=== PATIENT | male | born 1935 | race Two or more races ===

== ENCOUNTER 2017-08-05 19:57 | Inpatient (IN) | payer MEDICARE, BC ==
[~2017-08-05] VITALS: Ht 157.5 cm; Wt 83.5 kg
[2017-08-05 21:02] LABS: BASOPHILS # (AUTO) 0.1 K/uL (0.0-8.0); BASOPHILS % (AUTO) 0.7 % (0.0-2.0); CARBON DIOXIDE 33 mmol/L (21-32); CHLORIDE 95 mmol/L (98-107); CREATININE 2.9 mg/dL (0.6-1.3); EOSINOPHILS # (AUTO) 0.8 K/uL (0.0-0.7); EOSINOPHILS % (AUTO) 5.9 % (0.0-7.0); GLUCOSE 116 mg/dL (74-106); HEMATOCRIT 21.1 % (36.7-47.1); LYMPHOCYTES # (AUTO) 0.8 K/uL (20.0-40.0); LYMPHOCYTES % (AUTO) 5.5 % (20.5-51.5); MEAN CORPUSCULAR HEMOGLOBIN 28.9 uug (23.8-33.4); MEAN CORPUSCULAR HGB CONC 32 g/dL (32.5-36.3); MEAN CORPUSCULAR VOLUME 90.3 fL (73.0-96.2); MONOCYTES # (AUTO) 2.2 K/uL (2.0-10.0); MONOCYTES % (AUTO) 16.1 % (0.0-11.0); NEUTROPHILS # (AUTO) 9.9 K/uL (1.8-8.9); NEUTROPHILS % (AUTO) 71.8 % (38.5-71.5); PLATELET COUNT (AUTO) 149 K/uL (152-348); POTASSIUM 3.5 mmol/L (3.5-5.1); UREA NITROGEN, BLOOD 54 mg/dL (7-18)
[2017-08-05 21:05] LABS: RED BLOOD CELL COUNT(AUTO) 2.34 MIL/uL (4.06-5.63)
[2017-08-05 21:07] LABS: HEMOGLOBIN 6.8 g/dL (12.5-16.3); WHITE BLOOD COUNT (AUTO) 13.8 K/uL (3.6-10.2)
[2017-08-05 21:15] LABS: ALANINE AMINOTRANSFERASE 22 U/L (16-63); ALKALINE PHOSPHATASE 96 U/L (50-136); ASPARTATE AMINOTRANSFERASE 22 U/L (15-37); BILIRUBIN,DIRECT 0.4 mg/dL (0.0-0.2); BILIRUBIN,TOTAL 0.8 mg/dL (0.2-1.0); TOTAL PROTEIN, SERUM 7.2 g/dL (6.4-8.2)
[2017-08-05 21:38] LABS: BAND % (MANUAL) 15 % (0-10); EOSINOPHILS % (MANUAL) 7 % (0-8); LYMPHOCYTES % (MANUAL) 6 % (20-40); MONOCYTES % (MANUAL) 16 % (2-10); NEUTROPHILS % (MANUAL) 53 % (42-75)
[2017-08-05 21:39] LABS: METAMYELOCYTES % 2 % (0-1); MYELOCYTES % 1 % (0-0)
[2017-08-05] MEDS ORDERED: MIDO5TAB GT (21:39)
[2017-08-05] MEDS ORDERED: BICA50TA2 GT (21:39)
[2017-08-05] MEDS ORDERED: POLY17PO4 GT (21:39)
[2017-08-05] MEDS ORDERED: ONDA4TAB10 GT (21:39)
[2017-08-05] MEDS ORDERED: VIT1TABL46 GT (21:39)
[2017-08-05] MEDS ORDERED: SEVE800T8 GT (21:39)
[2017-08-05] MEDS ORDERED: ATOR40TA GT (21:39)
[2017-08-05] MEDS ORDERED: TAMS0.4C34 GT (21:39)
[2017-08-05] MEDS ORDERED: HYDROCORTISONE CREAM TOP (21:39)
[2017-08-05] MEDS ORDERED: ACET160S GT (21:39)
[2017-08-05] MEDS ORDERED: GLUC1KIT IJ (21:39)
[2017-08-05] MEDS ORDERED: FAMO20TA8 GT (21:39)
[2017-08-05] MEDS ORDERED: IPRA3AMP IH (21:39)
[2017-08-05] MEDS ORDERED: ASCO500C18 GT (21:39)
[2017-08-05] MEDS ORDERED: BISA10SU8 RC (21:39)
[2017-08-05] MEDS ORDERED: SENN-167 GT (21:39)
[2017-08-05] MEDS ORDERED: PROT946L GT (21:39)
[2017-08-05] MEDS ORDERED: TRAM50TA2 GT (21:39)
[2017-08-05] MEDS ORDERED: DOCU100C36 GT (21:39)
[2017-08-05] MEDS ORDERED: LEVOFLOXACIN 500 MG/D5W 100ML PIGGYBACK IV ONE (22:00)
[2017-08-05] MEDS ORDERED: LEVOFLOXACIN 500 MG/D5W 100 ML ONE (22:17)
[2017-08-05] MEDS ORDERED: PANTOPRAZOLE SODIUM 40 MG VIAL IV ONE (22:45)
[2017-08-05] MEDS ORDERED: PANTOPRAZOLE SODIUM 40 MG VIAL ONE (22:46)
[2017-08-05 23:23] LABS: *OCCULT BLOOD STOOL POSITIVE (NEGATIVE)
[2017-08-06] VITALS (14 sets, daily range): BP systolic 97–119; BP diastolic 51–76
[2017-08-06] MEDS ORDERED: DEXTROSE 50% 50 ML DISP.SYRIN IV PRN ×2 (01:45)
[2017-08-06] MEDS ORDERED: INSULIN REGULAR, HUMAN 300 UNIT/3 ML VIAL SQ PRN (01:45)
[2017-08-06] MEDS: BLOOD SUGAR DIAGNOSTIC 1 EACH STRIP VI SCH ×3 (06:10→17:45)
[2017-08-06] MEDS ORDERED: BLOOD SUGAR DIAGNOSTIC 1 EACH STRIP VI SCH (07:30)
[2017-08-06] MEDS ORDERED: NOVASOURCE RENAL 1000 ML LIQUID GT SCH (08:15)
[2017-08-06 09:18] LABS: BASOPHILS # (AUTO) 0.1 K/uL (0.0-8.0); BASOPHILS % (AUTO) 0.9 % (0.0-2.0); EOSINOPHILS # (AUTO) 0.5 K/uL (0.0-0.7); EOSINOPHILS % (AUTO) 3.4 % (0.0-7.0); HEMATOCRIT 27.6 % (36.7-47.1); HEMOGLOBIN 9.1 g/dL (12.5-16.3); LYMPHOCYTES # (AUTO) 0.6 K/uL (20.0-40.0); LYMPHOCYTES % (AUTO) 4.3 % (20.5-51.5); MEAN CORPUSCULAR HEMOGLOBIN 29.1 uug (23.8-33.4); MEAN CORPUSCULAR HGB CONC 33 g/dL (32.5-36.3); MEAN CORPUSCULAR VOLUME 88.1 fL (73.0-96.2); MONOCYTES # (AUTO) 2.1 K/uL (2.0-10.0); MONOCYTES % (AUTO) 14.1 % (0.0-11.0); NEUTROPHILS # (AUTO) 11.5 K/uL (1.8-8.9); NEUTROPHILS % (AUTO) 77.3 % (38.5-71.5); PLATELET COUNT (AUTO) 137 K/uL (152-348); RED BLOOD CELL COUNT(AUTO) 3.14 MIL/uL (4.06-5.63); WHITE BLOOD COUNT (AUTO) 14.8 K/uL (3.6-10.2)
[2017-08-06 09:29] LABS: MAGNESIUM 2.3 mg/dL (1.8-2.4); PHOSPHOROUS 3.7 mg/dL (2.5-4.9)
[2017-08-06] MEDS ORDERED: MIRALAX 17 GM POWD.PACK GT PRN (09:30)
[2017-08-06] MEDS ORDERED: ONDANSETRON HCL 4 MG TABLET GT PRN (09:30)
[2017-08-06] MEDS ORDERED: DOCUSATE SODIUM 100 MG/10 ML LIQUID UDC GT PRN (09:30)
[2017-08-06] MEDS ORDERED: BISACODYL 10 MG SUPP.RECT RC PRN (09:30)
[2017-08-06] MEDS ORDERED: GLUCAGON,HUMAN RECOMBINANT 1 MG VIAL IVP PRN (09:30)
[2017-08-06] MEDS ORDERED: TRAMADOL HCL 50 MG TABLET GT PRN (09:30)
[2017-08-06] MEDS ORDERED: SENNOSIDES 1 TABLET GT PRN (09:30)
[2017-08-06] MEDS: FOLIC ACID/VITAMIN B COMP W-C TABLET GT SCH (10:02)
[2017-08-06] MEDS: FAMOTIDINE 20 MG TABLET GT SCH (10:02)
[2017-08-06] MEDS: PROTEIN SUPPLEMENT (PROSTAT) 30 ML LIQUID GT SCH ×3 (10:02→16:45)
[2017-08-06] MEDS: ASCORBIC ACID 250 MG TABLET GT SCH (10:02)
[2017-08-06] MEDS: TAMSULOSIN HCL 0.4 MG CAP.SR.24H XX SCH (10:02)
[2017-08-06] MEDS: MIDODRINE HCL 5 MG TABLET GT SCH ×3 (10:05→20:32)
[2017-08-06 11:56] LABS: BAND % (MANUAL) 11 % (0-10); EOSINOPHILS % (MANUAL) 4 % (0-8); LYMPHOCYTES % (MANUAL) 5 % (20-40); METAMYELOCYTES % 3 % (0-1); MONOCYTES % (MANUAL) 12 % (2-10); MYELOCYTES % 3 % (0-0); NEUTROPHILS % (MANUAL) 62 % (42-75)
[2017-08-06] MEDS: SEVELAMER CARBONATE 800 MG POWD.PACK GT SCH ×3 (12:22→20:38)
[2017-08-06] MEDS: BICALUTAMIDE 50 MG TABLET GT SCH (12:24)
[2017-08-06] MEDS: INSULIN REGULAR, HUMAN 300 UNIT/3 ML VIAL SQ PRN ×2 (12:25→17:46)
[2017-08-06] MEDS ORDERED: ALBUMIN HUMAN 25% 100 ML IV ONE (12:30)
[2017-08-06] MEDS: ATORVASTATIN 40 MG TABLET GT SCH (20:32)
[2017-08-07 00:06] VITALS: BP 106/61
[2017-08-07] MEDS: BLOOD SUGAR DIAGNOSTIC 1 EACH STRIP VI SCH ×5 (00:28→23:58)
[2017-08-07] MEDS: IPRATROPIUM BROMIDE 0.5 MG/2.5 ML NEBU NEB PRN (01:06)
[2017-08-07] MEDS: ALBUTEROL SULFATE 2.5 MG/ 0.5 ML NEBU NEB PRN (01:07)
[2017-08-07 04:05] VITALS: BP 106/60
[2017-08-07] MEDS: SEVELAMER CARBONATE 800 MG POWD.PACK GT SCH ×3 (06:35→22:18)
[2017-08-07] MEDS: MIDODRINE HCL 5 MG TABLET GT SCH ×3 (06:36→22:18)
[2017-08-07] MEDS: INSULIN REGULAR, HUMAN 300 UNIT/3 ML VIAL SQ PRN ×2 (06:42→14:28)
[2017-08-07 06:43] LABS: BASOPHILS # (AUTO) 0.1 K/uL (0.0-8.0); BASOPHILS % (AUTO) 0.6 % (0.0-2.0); EOSINOPHILS # (AUTO) 0.8 K/uL (0.0-0.7); LYMPHOCYTES # (AUTO) 0.2 K/uL (20.0-40.0); LYMPHOCYTES % (AUTO) 1.4 % (20.5-51.5); MEAN CORPUSCULAR HEMOGLOBIN 29.2 uug (23.8-33.4); MEAN CORPUSCULAR HGB CONC 33 g/dL (32.5-36.3); MEAN CORPUSCULAR VOLUME 89.5 fL (73.0-96.2); MONOCYTES # (AUTO) 1.1 K/uL (2.0-10.0); MONOCYTES % (AUTO) 8.2 % (0.0-11.0); NEUTROPHILS # (AUTO) 11.7 K/uL (1.8-8.9); NEUTROPHILS % (AUTO) 83.8 % (38.5-71.5)
[2017-08-07 06:55] LABS: HEMOGLOBIN 9.8 g/dL (12.5-16.3); RED BLOOD CELL COUNT(AUTO) 3.36 MIL/uL (4.06-5.63)
[2017-08-07 06:56] LABS: IRON, SERUM 32 ug/dL (50-175); PLATELET COUNT (AUTO) 148 K/uL (152-348)
[2017-08-07 07:36] LABS: ALANINE AMINOTRANSFERASE 19 U/L (16-63); ALKALINE PHOSPHATASE 99 U/L (50-136); ASPARTATE AMINOTRANSFERASE 24 U/L (15-37); BILIRUBIN,TOTAL 1.2 mg/dL (0.2-1.0); CARBON DIOXIDE 31 mmol/L (21-32); CHLORIDE 97 mmol/L (98-107); CREATININE 3.1 mg/dL (0.6-1.3); FERRITIN 2066 ng/mL (26-388); GLUCOSE 162 mg/dL (74-106); MAGNESIUM 2.2 mg/dL (1.8-2.4); PHOSPHOROUS 2.6 mg/dL (2.5-4.9); POTASSIUM 3.9 mmol/L (3.5-5.1); TOTAL PROTEIN, SERUM 7.7 g/dL (6.4-8.2); UREA NITROGEN, BLOOD 56 mg/dL (7-18)
[2017-08-07 08:31] LABS: ABG BASE EXCESS 3.3 mmol/L; ABG HCO3 30.6 mmol/L; ABG PCO2 60.4 mmHg (35.0-45.0); ABG PH 7.322 (7.350-7.450); ABG PO2 73.6 mmHg (75.0-100.0); ABG SITE LEFT RADIAL; ABG TOTAL HEMOGLOBIN 10.9 G/dL (13.5-18.0); MetHb 0.3 % (0.0-1.5); O2Hb 92.2 % (94.0-97.0); VENT MODE VENT - SIMV; VT, ABG 500 mL
[2017-08-07] MEDS: FAMOTIDINE 20 MG TABLET GT SCH (09:45)
[2017-08-07] MEDS: FOLIC ACID/VITAMIN B COMP W-C TABLET GT SCH (09:45)
[2017-08-07] MEDS: BICALUTAMIDE 50 MG TABLET GT SCH (09:45)
[2017-08-07] MEDS: ASCORBIC ACID 250 MG TABLET GT SCH (09:46)
[2017-08-07] MEDS: PROTEIN SUPPLEMENT (PROSTAT) 30 ML LIQUID GT SCH ×3 (09:46→17:00)
[2017-08-07] MEDS: TAMSULOSIN HCL 0.4 MG CAP.SR.24H XX SCH (09:46)
[2017-08-07 11:52] VITALS: BP 104/56
[2017-08-07 15:57] VITALS: BP 104/61
[2017-08-07 20:28] VITALS: BP 103/52
[2017-08-07] MEDS: ATORVASTATIN 40 MG TABLET GT SCH (20:48)
[2017-08-07] MEDS ORDERED: LEVOFLOXACIN 250MG /D5W 50 ML IV ONE (21:52)
[2017-08-07] MEDS ORDERED: LEVOFLOXACIN 250MG /D5W 250 MG in PREMIXED 1 EACH IV SCH (22:00)
[2017-08-07] MEDS: ACETAMINOPHEN 650 MG/20.3 ML LIQUID UDC GT PRN (22:22)
[2017-08-08] VITALS (7 sets, daily range): BP systolic 84–99; BP diastolic 43–57
[2017-08-08] MEDS: MIDODRINE HCL 5 MG TABLET GT SCH ×3 (05:24→20:38)
[2017-08-08] MEDS: SEVELAMER CARBONATE 800 MG POWD.PACK GT SCH ×3 (05:24→20:30)
[2017-08-08] MEDS: BLOOD SUGAR DIAGNOSTIC 1 EACH STRIP VI SCH ×3 (05:33→17:20)
[2017-08-08] MEDS: INSULIN REGULAR, HUMAN 300 UNIT/3 ML VIAL SQ PRN ×2 (05:36→17:22)
[2017-08-08] MEDS ORDERED: ALBUMIN HUMAN 25% 100 ML IV PRN (08:00)
[2017-08-08] MEDS: TAMSULOSIN HCL 0.4 MG CAP.SR.24H XX SCH (09:40)
[2017-08-08] MEDS: ASCORBIC ACID 250 MG TABLET GT SCH (09:40)
[2017-08-08] MEDS: FOLIC ACID/VITAMIN B COMP W-C TABLET GT SCH (09:40)
[2017-08-08] MEDS: BICALUTAMIDE 50 MG TABLET GT SCH (09:43)
[2017-08-08] MEDS: PROTEIN SUPPLEMENT (PROSTAT) 30 ML LIQUID GT SCH ×3 (09:47→17:20)
[2017-08-08] MEDS: FAMOTIDINE 20 MG TABLET GT SCH (09:53)
[2017-08-08 12:38] LABS: BASOPHILS % (AUTO) 0.4 % (0.0-2.0); EOSINOPHILS % (AUTO) 10.1 % (0.0-7.0); HEMATOCRIT 28.5 % (36.7-47.1); HEMOGLOBIN 9.1 g/dL (12.5-16.3); LYMPHOCYTES # (AUTO) 0.4 K/uL (20.0-40.0); LYMPHOCYTES % (AUTO) 3.7 % (20.5-51.5); MEAN CORPUSCULAR HGB CONC 32 g/dL (32.5-36.3); MEAN CORPUSCULAR VOLUME 90.8 fL (73.0-96.2); MONOCYTES # (AUTO) 1.1 K/uL (2.0-10.0); NEUTROPHILS # (AUTO) 7.3 K/uL (1.8-8.9); NEUTROPHILS % (AUTO) 74.8 % (38.5-71.5); RED BLOOD CELL COUNT(AUTO) 3.13 MIL/uL (4.06-5.63)
[2017-08-08 12:45] LABS: WHITE BLOOD COUNT (AUTO) 9.8 K/uL (3.6-10.2)
[2017-08-08 12:46] LABS: PLATELET COUNT (AUTO) 122 K/uL (152-348)
[2017-08-08 13:07] LABS: ALANINE AMINOTRANSFERASE 18 U/L (16-63); ALKALINE PHOSPHATASE 74 U/L (50-136); ASPARTATE AMINOTRANSFERASE 16 U/L (15-37); CARBON DIOXIDE 34 mmol/L (21-32); CHLORIDE 100 mmol/L (98-107); CREATININE 2.3 mg/dL (0.6-1.3); GLUCOSE 130 mg/dL (74-106); MAGNESIUM 1.9 mg/dL (1.8-2.4); PHOSPHOROUS 1.9 mg/dL (2.5-4.9); POTASSIUM 3.3 mmol/L (3.5-5.1); TOTAL PROTEIN, SERUM 6.9 g/dL (6.4-8.2); UREA NITROGEN, BLOOD 40 mg/dL (7-18)
[2017-08-08 14:05] LABS: BAND % (MANUAL) 19 % (0-10); EOSINOPHILS % (MANUAL) 8 % (0-8); LYMPHOCYTES % (MANUAL) 4 % (20-40); METAMYELOCYTES % 2 % (0-1); MONOCYTES % (MANUAL) 10 % (2-10); MYELOCYTES % 1 % (0-0); NEUTROPHILS % (MANUAL) 56 % (42-75)
[2017-08-08] MEDS: ACETAMINOPHEN 650 MG/20.3 ML LIQUID UDC GT PRN (19:32)
[2017-08-08] MEDS: ATORVASTATIN 40 MG TABLET GT SCH (20:28)
[2017-08-08] MEDS: Z GUARD REMEDY PASTE 57 GM TUBE TOP PRN (20:37)
[2017-08-08] MEDS: NOVASOURCE RENAL 1000 ML LIQUID GT SCH (21:06)
[2017-08-08] MEDS ORDERED: VANCOMYCIN 1000 MG VIAL ONE (22:15)
[2017-08-08] MEDS ORDERED: VANCOMYCIN IV 1,000 MG in IV DEXTROSE 5% 250 ML IV SCH (23:00)
[2017-08-09 00:36] VITALS: BP 90/51
[2017-08-09] MEDS: IPRATROPIUM BROMIDE 0.5 MG/2.5 ML NEBU NEB PRN (00:51)
[2017-08-09] MEDS: ALBUTEROL SULFATE 2.5 MG/ 0.5 ML NEBU NEB PRN (00:51)
[2017-08-09] MEDS: BLOOD SUGAR DIAGNOSTIC 1 EACH STRIP VI SCH ×4 (01:02→17:42)
[2017-08-09] MEDS: INSULIN REGULAR, HUMAN 300 UNIT/3 ML VIAL SQ PRN ×2 (01:10→06:42)
[2017-08-09 04:00] VITALS: BP 93/53
[2017-08-09] MEDS: SEVELAMER CARBONATE 800 MG POWD.PACK GT SCH ×3 (06:02→22:11)
[2017-08-09] MEDS: MIDODRINE HCL 5 MG TABLET GT SCH ×3 (06:03→22:11)
[2017-08-09 07:05] LABS: BASOPHILS # (AUTO) 0.1 K/uL (0.0-8.0); BASOPHILS % (AUTO) 0.8 % (0.0-2.0); EOSINOPHILS # (AUTO) 1.3 K/uL (0.0-0.7); EOSINOPHILS % (AUTO) 10.8 % (0.0-7.0); HEMATOCRIT 29.8 % (36.7-47.1); HEMOGLOBIN 9.7 g/dL (12.5-16.3); LYMPHOCYTES # (AUTO) 0.3 K/uL (20.0-40.0); LYMPHOCYTES % (AUTO) 2.5 % (20.5-51.5); MEAN CORPUSCULAR HEMOGLOBIN 29.7 uug (23.8-33.4); MEAN CORPUSCULAR HGB CONC 33 g/dL (32.5-36.3); MEAN CORPUSCULAR VOLUME 91.5 fL (73.0-96.2); MONOCYTES # (AUTO) 0.9 K/uL (2.0-10.0); MONOCYTES % (AUTO) 7.1 % (0.0-11.0); NEUTROPHILS # (AUTO) 9.4 K/uL (1.8-8.9); NEUTROPHILS % (AUTO) 78.8 % (38.5-71.5); PLATELET COUNT (AUTO) 143 K/uL (152-348); RED BLOOD CELL COUNT(AUTO) 3.26 MIL/uL (4.06-5.63)
[2017-08-09 07:11] LABS: ALANINE AMINOTRANSFERASE 16 U/L (16-63); ALKALINE PHOSPHATASE 85 U/L (50-136); ASPARTATE AMINOTRANSFERASE 23 U/L (15-37); BILIRUBIN,TOTAL 0.9 mg/dL (0.2-1.0); CARBON DIOXIDE 32 mmol/L (21-32); CHLORIDE 98 mmol/L (98-107); CREATININE 3.2 mg/dL (0.6-1.3); GLUCOSE 128 mg/dL (74-106); MAGNESIUM 2.1 mg/dL (1.8-2.4); PHOSPHOROUS 2.4 mg/dL (2.5-4.9); POTASSIUM 3.7 mmol/L (3.5-5.1); TOTAL PROTEIN, SERUM 7.1 g/dL (6.4-8.2)
[2017-08-09 07:24] VITALS: BP 97/59
[2017-08-09 07:39] LABS: UREA NITROGEN, BLOOD 59 mg/dL (7-18)
[2017-08-09] MEDS: FOLIC ACID/VITAMIN B COMP W-C TABLET GT SCH (08:58)
[2017-08-09] MEDS: FAMOTIDINE 20 MG TABLET GT SCH (08:58)
[2017-08-09] MEDS: BICALUTAMIDE 50 MG TABLET GT SCH (08:59)
[2017-08-09] MEDS: ASCORBIC ACID 250 MG TABLET GT SCH (09:00)
[2017-08-09] MEDS: TAMSULOSIN HCL 0.4 MG CAP.SR.24H XX SCH (09:00)
[2017-08-09] MEDS: PROTEIN SUPPLEMENT (PROSTAT) 30 ML LIQUID GT SCH ×3 (09:04→17:42)
[2017-08-09] MEDS ORDERED: SODIUM PHOSPHATE MM 7.5 MM in IV DEXTROSE 5% 100 ML IV ONE (10:00)
[2017-08-09 11:10] VITALS: BP 92/46
[2017-08-09 12:14] LABS: BAND % (MANUAL) 31 % (0-10); EOSINOPHILS % (MANUAL) 10 % (0-8); LYMPHOCYTES % (MANUAL) 2 % (20-40); METAMYELOCYTES % 4 % (0-1); MONOCYTES % (MANUAL) 5 % (2-10); MYELOCYTES % 1 % (0-0); NEUTROPHILS % (MANUAL) 47 % (42-75)
[2017-08-09 15:02] VITALS: BP 90/48
[2017-08-09 20:09] VITALS: BP 98/53
[2017-08-09] MEDS: ATORVASTATIN 40 MG TABLET GT SCH (21:05)
[2017-08-10] MEDS: BLOOD SUGAR DIAGNOSTIC 1 EACH STRIP VI SCH ×4 (00:14→17:54)
[2017-08-10 00:24] VITALS: BP 94/30
[2017-08-10 04:35] VITALS: BP 91/36
[2017-08-10] MEDS: SEVELAMER CARBONATE 800 MG POWD.PACK GT SCH ×3 (05:27→20:46)
[2017-08-10] MEDS: MIDODRINE HCL 5 MG TABLET GT SCH ×3 (05:30→20:46)
[2017-08-10 07:30] VITALS: BP 84/42
[2017-08-10] MEDS: FOLIC ACID/VITAMIN B COMP W-C TABLET GT SCH (08:36)
[2017-08-10] MEDS: FAMOTIDINE 20 MG TABLET GT SCH (08:36)
[2017-08-10] MEDS: TAMSULOSIN HCL 0.4 MG CAP.SR.24H XX SCH (08:36)
[2017-08-10] MEDS: ASCORBIC ACID 250 MG TABLET GT SCH (08:36)
[2017-08-10] MEDS: PROTEIN SUPPLEMENT (PROSTAT) 30 ML LIQUID GT SCH ×3 (08:37→17:55)
[2017-08-10] MEDS: BICALUTAMIDE 50 MG TABLET GT SCH (08:37)
[2017-08-10] MEDS: NOVASOURCE RENAL 1000 ML LIQUID GT SCH (11:14)
[2017-08-10 11:40] VITALS: BP 92/46
[2017-08-10] MEDS ORDERED: ALBUMIN HUMAN 25% 100 ML IV ONE (12:45)
[2017-08-10 15:34] VITALS: BP 93/50
[2017-08-10] MEDS ORDERED: VANCOMYCIN IV 1 G in PREMIXED 0 EACH IV ONE (16:00)
[2017-08-10 20:00] VITALS: BP 90/49
[2017-08-10] MEDS: ATORVASTATIN 40 MG TABLET GT SCH (20:45)
[2017-08-10] MEDS: ACETAMINOPHEN 650 MG/20.3 ML LIQUID UDC GT PRN (20:45)
[2017-08-11] MEDS: BLOOD SUGAR DIAGNOSTIC 1 EACH STRIP VI SCH ×4 (00:14→18:19)
[2017-08-11] MEDS: INSULIN REGULAR, HUMAN 300 UNIT/3 ML VIAL SQ PRN ×3 (00:16→13:38)
[2017-08-11 00:17] VITALS: BP 86/39
[2017-08-11 04:30] VITALS: BP 89/44
[2017-08-11] MEDS: SEVELAMER CARBONATE 800 MG POWD.PACK GT SCH ×3 (06:14→20:34)
[2017-08-11] MEDS: MIDODRINE HCL 5 MG TABLET GT SCH ×3 (06:14→20:33)
[2017-08-11 06:16] LABS: BASOPHILS # (AUTO) 0.1 K/uL (0.0-8.0); BASOPHILS % (AUTO) 0.7 % (0.0-2.0); EOSINOPHILS % (AUTO) 9.7 % (0.0-7.0); HEMATOCRIT 27.5 % (36.7-47.1); HEMOGLOBIN 8.7 g/dL (12.5-16.3); LYMPHOCYTES # (AUTO) 0.4 K/uL (20.0-40.0); LYMPHOCYTES % (AUTO) 3.7 % (20.5-51.5); MEAN CORPUSCULAR HEMOGLOBIN 29.2 uug (23.8-33.4); MEAN CORPUSCULAR HGB CONC 32 g/dL (32.5-36.3); MEAN CORPUSCULAR VOLUME 92.2 fL (73.0-96.2); MONOCYTES # (AUTO) 1.1 K/uL (2.0-10.0); MONOCYTES % (AUTO) 10.9 % (0.0-11.0); NEUTROPHILS # (AUTO) 7.5 K/uL (1.8-8.9); PLATELET COUNT (AUTO) 96 K/uL (152-348); RED BLOOD CELL COUNT(AUTO) 2.99 MIL/uL (4.06-5.63)
[2017-08-11 06:27] LABS: ALANINE AMINOTRANSFERASE 20 U/L (16-63); ALKALINE PHOSPHATASE 76 U/L (50-136); ASPARTATE AMINOTRANSFERASE 19 U/L (15-37); BILIRUBIN,TOTAL 0.7 mg/dL (0.2-1.0); CARBON DIOXIDE 31 mmol/L (21-32); CHLORIDE 99 mmol/L (98-107); CREATININE 3.2 mg/dL (0.6-1.3); GLUCOSE 130 mg/dL (74-106); MAGNESIUM 2.1 mg/dL (1.8-2.4); PHOSPHOROUS 3.1 mg/dL (2.5-4.9); POTASSIUM 3.7 mmol/L (3.5-5.1); TOTAL PROTEIN, SERUM 6.7 g/dL (6.4-8.2); UREA NITROGEN, BLOOD 66 mg/dL (7-18)
[2017-08-11] MEDS: NOVASOURCE RENAL 1000 ML LIQUID GT SCH (06:36)
[2017-08-11] MEDS: Z GUARD REMEDY PASTE 57 GM TUBE TOP PRN ×2 (06:37→20:32)
[2017-08-11 08:47] VITALS: BP 98/43
[2017-08-11] MEDS: FOLIC ACID/VITAMIN B COMP W-C TABLET GT SCH (08:49)
[2017-08-11] MEDS: FAMOTIDINE 20 MG TABLET GT SCH (08:49)
[2017-08-11] MEDS: TAMSULOSIN HCL 0.4 MG CAP.SR.24H XX SCH (08:49)
[2017-08-11] MEDS: ASCORBIC ACID 250 MG TABLET GT SCH (08:49)
[2017-08-11] MEDS: PROTEIN SUPPLEMENT (PROSTAT) 30 ML LIQUID GT SCH ×3 (08:50→16:18)
[2017-08-11] MEDS: BICALUTAMIDE 50 MG TABLET GT SCH (08:50)
[2017-08-11] MEDS: CEFAZOLIN 1 G in PREMIXED 1 EACH IV SCH (08:55)
[2017-08-11 09:23] LABS: ABG BASE EXCESS -1.4 mmol/L; ABG HCO3 26.4 mmol/L; ABG PCO2 62.1 mmHg (35.0-45.0); ABG PH 7.247 (7.350-7.450); ABG PO2 107.4 mmHg (75.0-100.0); ABG SITE RIGHT RADIAL; ABG TOTAL HEMOGLOBIN 9.7 G/dL (13.5-18.0); COHb 1.9 % (0.5-1.5); CPAP,BG 10 cmH20; MetHb 0.5 % (0.0-1.5); O2Hb 95.7 % (94.0-97.0); VENT MODE VENT - CPAP
[2017-08-11 10:16] LABS: BAND % (MANUAL) 7 % (0-10); EOSINOPHILS % (MANUAL) 11 % (0-8); LYMPHOCYTES % (MANUAL) 5 % (20-40); METAMYELOCYTES % 1 % (0-1); MONOCYTES % (MANUAL) 11 % (2-10); MYELOCYTES % 2 % (0-0); NEUTROPHILS % (MANUAL) 63 % (42-75)
[2017-08-11 11:46] VITALS: BP 89/45
[2017-08-11 15:50] VITALS: BP 90/47
[2017-08-11 20:07] VITALS: BP 93/48
[2017-08-11] MEDS: ACETAMINOPHEN 650 MG/20.3 ML LIQUID UDC GT PRN (20:32)
[2017-08-11] MEDS: ATORVASTATIN 40 MG TABLET GT SCH (20:33)
[2017-08-12] VITALS (9 sets, daily range): BP systolic 77–93; BP diastolic 37–46
[2017-08-12] MEDS: NOVASOURCE RENAL 1000 ML LIQUID GT SCH (04:22)
[2017-08-12] MEDS: Z GUARD REMEDY PASTE 57 GM TUBE TOP PRN (04:22)
[2017-08-12] MEDS: MIDODRINE HCL 5 MG TABLET GT SCH ×3 (05:07→21:47)
[2017-08-12] MEDS: ACETAMINOPHEN 650 MG/20.3 ML LIQUID UDC GT PRN (05:07)
[2017-08-12] MEDS: SEVELAMER CARBONATE 800 MG POWD.PACK GT SCH ×3 (05:32→21:47)
[2017-08-12] MEDS: BLOOD SUGAR DIAGNOSTIC 1 EACH STRIP VI SCH ×4 (06:18→17:32)
[2017-08-12] MEDS: TAMSULOSIN HCL 0.4 MG CAP.SR.24H XX SCH (09:00)
[2017-08-12] MEDS: FOLIC ACID/VITAMIN B COMP W-C TABLET GT SCH (09:00)
[2017-08-12] MEDS: FAMOTIDINE 20 MG TABLET GT SCH (09:00)
[2017-08-12] MEDS: ASCORBIC ACID 250 MG TABLET GT SCH (09:00)
[2017-08-12] MEDS: CEFAZOLIN 1 G in PREMIXED 1 EACH IV SCH (09:00)
[2017-08-12] MEDS: PROTEIN SUPPLEMENT (PROSTAT) 30 ML LIQUID GT SCH ×3 (09:01→17:33)
[2017-08-12] MEDS: BICALUTAMIDE 50 MG TABLET GT SCH (09:11)
[2017-08-12] MEDS ORDERED: ALBUMIN HUMAN 25% 100 ML IV PRN (10:45)
[2017-08-12] MEDS: ATORVASTATIN 40 MG TABLET GT SCH (21:47)
[2017-08-13 00:12] VITALS: BP 95/43
[2017-08-13] MEDS: BLOOD SUGAR DIAGNOSTIC 1 EACH STRIP VI SCH ×4 (00:31→17:41)
[2017-08-13] MEDS: INSULIN REGULAR, HUMAN 300 UNIT/3 ML VIAL SQ PRN (01:04)
[2017-08-13 04:35] VITALS: BP 92/50
[2017-08-13] MEDS: MIDODRINE HCL 5 MG TABLET GT SCH ×3 (06:13→21:07)
[2017-08-13] MEDS: SEVELAMER CARBONATE 800 MG POWD.PACK GT SCH ×3 (06:13→21:07)
[2017-08-13 07:33] VITALS: BP 99/51
[2017-08-13] MEDS: ACETAMINOPHEN 650 MG/20.3 ML LIQUID UDC GT PRN (08:22)
[2017-08-13] MEDS: TAMSULOSIN HCL 0.4 MG CAP.SR.24H XX SCH (08:22)
[2017-08-13] MEDS: BICALUTAMIDE 50 MG TABLET GT SCH (08:24)
[2017-08-13] MEDS: FOLIC ACID/VITAMIN B COMP W-C TABLET GT SCH (08:25)
[2017-08-13] MEDS: FAMOTIDINE 20 MG TABLET GT SCH (08:25)
[2017-08-13] MEDS: ASCORBIC ACID 250 MG TABLET GT SCH (08:25)
[2017-08-13] MEDS: PROTEIN SUPPLEMENT (PROSTAT) 30 ML LIQUID GT SCH ×3 (08:25→16:44)
[2017-08-13] MEDS: CEFAZOLIN 1 G in PREMIXED 1 EACH IV SCH (08:27)
[2017-08-13] MEDS: Z GUARD REMEDY PASTE 57 GM TUBE TOP PRN (08:27)
[2017-08-13 11:54] VITALS: BP 75/36
[2017-08-13] MEDS ORDERED: IV NORMAL SALINE 500 ML IV ONE (12:00)
[2017-08-13] MEDS: NOVASOURCE RENAL 1000 ML LIQUID GT SCH (13:51)
[2017-08-13 15:38] VITALS: BP 116/44
[2017-08-13 20:28] VITALS: BP 96/47
[2017-08-13] MEDS: ATORVASTATIN 40 MG TABLET GT SCH (21:07)
[2017-08-14] VITALS (11 sets, daily range): BP systolic 99–111; BP diastolic 31–52
[2017-08-14] MEDS: BLOOD SUGAR DIAGNOSTIC 1 EACH STRIP VI SCH ×4 (00:04→17:26)
[2017-08-14] MEDS: INSULIN REGULAR, HUMAN 300 UNIT/3 ML VIAL SQ PRN (00:06)
[2017-08-14] MEDS: MIDODRINE HCL 5 MG TABLET GT SCH ×3 (06:04→21:11)
[2017-08-14] MEDS: SEVELAMER CARBONATE 800 MG POWD.PACK GT SCH ×3 (06:04→21:10)
[2017-08-14] MEDS: FAMOTIDINE 20 MG TABLET GT SCH (08:07)
[2017-08-14] MEDS: ASCORBIC ACID 250 MG TABLET GT SCH (08:08)
[2017-08-14] MEDS: BICALUTAMIDE 50 MG TABLET GT SCH (08:08)
[2017-08-14] MEDS: PROTEIN SUPPLEMENT (PROSTAT) 30 ML LIQUID GT SCH ×3 (08:08→16:23)
[2017-08-14] MEDS: TAMSULOSIN HCL 0.4 MG CAP.SR.24H XX SCH (08:08)
[2017-08-14] MEDS: FOLIC ACID/VITAMIN B COMP W-C TABLET GT SCH (08:08)
[2017-08-14] MEDS: CEFAZOLIN 1 G in PREMIXED 1 EACH IV SCH (09:40)
[2017-08-14] MEDS ORDERED: ALBUMIN HUMAN 25% 100 ML IV PRN (10:00)
[2017-08-14 10:11] LABS: ALANINE AMINOTRANSFERASE 6 U/L (16-63); ALKALINE PHOSPHATASE 66 U/L (50-136); ASPARTATE AMINOTRANSFERASE 20 U/L (15-37); BILIRUBIN,TOTAL 0.6 mg/dL (0.2-1.0); GLUCOSE 126 mg/dL (74-106); TOTAL PROTEIN, SERUM 6.1 g/dL (6.4-8.2)
[2017-08-14 10:15] LABS: BASOPHILS # (AUTO) 0.1 K/uL (0.0-8.0); BASOPHILS % (AUTO) 1.3 % (0.0-2.0); EOSINOPHILS % (AUTO) 11.2 % (0.0-7.0); HEMATOCRIT 23.6 % (36.7-47.1); HEMOGLOBIN 7.6 g/dL (12.5-16.3); LYMPHOCYTES # (AUTO) 0.3 K/uL (20.0-40.0); MEAN CORPUSCULAR HEMOGLOBIN 29.2 uug (23.8-33.4); MEAN CORPUSCULAR HGB CONC 32 g/dL (32.5-36.3); MEAN CORPUSCULAR VOLUME 90.2 fL (73.0-96.2); MONOCYTES # (AUTO) 0.8 K/uL (2.0-10.0); MONOCYTES % (AUTO) 8.3 % (0.0-11.0); NEUTROPHILS # (AUTO) 7.1 K/uL (1.8-8.9); NEUTROPHILS % (AUTO) 76.2 % (38.5-71.5); PLATELET COUNT (AUTO) 88 K/uL (152-348); RED BLOOD CELL COUNT(AUTO) 2.62 MIL/uL (4.06-5.63); WHITE BLOOD COUNT (AUTO) 9.3 K/uL (3.6-10.2)
[2017-08-14 11:05] LABS: CHLORIDE 98 mmol/L (98-107); POTASSIUM 3.2 mmol/L (3.5-5.1)
[2017-08-14 11:06] LABS: CARBON DIOXIDE 26 mmol/L (21-32)
[2017-08-14 11:10] LABS: UREA NITROGEN, BLOOD 98 mg/dL (7-18)
[2017-08-14 11:11] LABS: CREATININE 4.1 mg/dL (0.6-1.3)
[2017-08-14 12:44] LABS: BAND % (MANUAL) 4 % (0-10); BASOPHILS % (MANUAL) 1 % (0-2); EOSINOPHILS % (MANUAL) 10 % (0-8); LYMPHOCYTES % (MANUAL) 3 % (20-40); METAMYELOCYTES % 1 % (0-1); MONOCYTES % (MANUAL) 8 % (2-10); MYELOCYTES % 1 % (0-0); NEUTROPHILS % (MANUAL) 72 % (42-75)
[2017-08-14] MEDS: ATORVASTATIN 40 MG TABLET GT SCH (21:10)
[2017-08-14] MEDS: NOVASOURCE RENAL 1000 ML LIQUID GT SCH (23:26)
[2017-08-15] VITALS (7 sets, daily range): BP systolic 98–119; BP diastolic 47–71
[2017-08-15] MEDS: BLOOD SUGAR DIAGNOSTIC 1 EACH STRIP VI SCH ×5 (00:25→23:31)
[2017-08-15] MEDS: INSULIN REGULAR, HUMAN 300 UNIT/3 ML VIAL SQ PRN ×2 (00:26→06:27)
[2017-08-15] MEDS: SEVELAMER CARBONATE 800 MG POWD.PACK GT SCH ×3 (06:00→21:43)
[2017-08-15] MEDS: FAMOTIDINE 20 MG TABLET GT SCH (06:00)
[2017-08-15] MEDS: MIDODRINE HCL 5 MG TABLET GT SCH ×3 (06:01→21:43)
[2017-08-15] MEDS: FOLIC ACID/VITAMIN B COMP W-C TABLET GT SCH (08:15)
[2017-08-15] MEDS: TAMSULOSIN HCL 0.4 MG CAP.SR.24H XX SCH (08:15)
[2017-08-15] MEDS: BICALUTAMIDE 50 MG TABLET GT SCH (08:15)
[2017-08-15] MEDS: ASCORBIC ACID 250 MG TABLET GT SCH (08:16)
[2017-08-15] MEDS: Z GUARD REMEDY PASTE 57 GM TUBE TOP PRN (08:17)
[2017-08-15] MEDS: PROTEIN SUPPLEMENT (PROSTAT) 30 ML LIQUID GT SCH ×3 (08:17→17:25)
[2017-08-15] MEDS: CEFAZOLIN 1 G in PREMIXED 1 EACH IV SCH (08:19)
[2017-08-15] MEDS ORDERED: MENT71OI TOP (11:43)
[2017-08-15] MEDS: ATORVASTATIN 40 MG TABLET GT SCH (21:41)
== END 2017-08-16 00:39 | DRG 870 ==
LOC: ER 20:02 → DOU 08-06 00:22 → TELE-TD 08-06 01:45
PROVIDERS: ADMIT Internal Medicine Nephrology; ATTEND Internal Medicine
PROC: 5A1955Z Respiratory Ventilation, Greater than 96 Consecutive Hours (ICD-10-PCS; principal; 2017-08-06)
PROC: 30233N1 Transfusion of Nonautologous Red Blood Cells into Peripheral Vein, Percutaneous Approach (ICD-10-PCS; 2017-08-06)
PROC: 5A1D70Z Performance of Urinary Filtration, Intermittent, Less than 6 Hours Per Day (ICD-10-PCS; 2017-08-06)
PROC: 0W9B3ZX Drainage of Left Pleural Cavity, Percutaneous Approach, Diagnostic (ICD-10-PCS; 2017-08-09)
DX: A41.9 Sepsis, unspecified organism (principal); J96.21 Acute and chronic respiratory failure with hypoxia; J15.211 Pneumonia due to Methicillin susceptible Staphylococcus aureus; Z99.11 Dependence on respirator [ventilator] status; J91.8 Pleural effusion in other conditions classified elsewhere; L89.153 Pressure ulcer of sacral region, stage 3; I95.89 Other hypotension; Z93.0 Tracheostomy status; J95.01 Hemorrhage from tracheostomy stoma; D69.6 Thrombocytopenia, unspecified; N18.6 End stage renal disease; J96.22 Acute and chronic respiratory failure with hypercapnia; I13.11 Hypertensive heart and chronic kidney disease without heart failure, with stage 5 chronic kidney disease, or end stage renal disease; I48.92 Unspecified atrial flutter; D63.1 Anemia in chronic kidney disease; D50.0 Iron deficiency anemia secondary to blood loss (chronic); D63.8 Anemia in other chronic diseases classified elsewhere; E11.22 Type 2 diabetes mellitus with diabetic chronic kidney disease; E11.65 Type 2 diabetes mellitus with hyperglycemia; R13.10 Dysphagia, unspecified; I48.0 Paroxysmal atrial fibrillation; Z99.2 Dependence on renal dialysis; E78.5 Hyperlipidemia, unspecified; E03.9 Hypothyroidism, unspecified; Z93.1 Gastrostomy status; Z95.0 Presence of cardiac pacemaker; R19.5 Other fecal abnormalities; I25.10 Atherosclerotic heart disease of native coronary artery without angina pectoris; Z95.1 Presence of aortocoronary bypass graft
CPT/HCPCS: 32555; 36415; 36600; 70030-TC; 71045; 71250; 76604; 83550; 83605; 83615; 83735; 83986; 84100; 84155; 84443; 85025; 85730; 86850; 86900; 86901; 86920; 87040; 87070; 87075; 87077; 87205; 90937; 93005; 94002; 94003; A4217; A4663; C9113; J0690; J1815; J1956; J3370; J3490; J7030; J7040; J7050; J7060; P9016-BL; P9021; P9047